=== PATIENT | male | born 1965 | race Caucasian/White ===

== ENCOUNTER 2022-09-11 10:51 | Inpatient (IN) | payer MEDICARE ==
[2022-09-11 11:18] LABS: #Eosinphils 0.3 thou/uL (0.0-0.7); #Lymphocytes 1.4 thou/uL (1.20-3.40); #Monocytes 0.5 thou/uL (0.11-0.59); #Neutrophils 3.5 thou/uL (1.40-6.50); %Basophils 0.6 % (0.0-1.0); %Eosinophils 5.3 % (0.0-10.0); %Lymphocytes 24.4 % (21.0-51.0); %Monocytes 9.3 % (0.0-10.0); %Neutrophils 60.3 % (42.0-75.0); Mean Corpuscular Hemoglobin 32.4 pg (27.0-31.0); Mean Corpuscular Volume 95.2 fl (78.0-98.0); Mean Platelet Volume 7.4 fL (7.4-10.4); Platelet Count 198 10x3/uL (130-400); RBC Distribution Width 12.2 % (11.5-14.5); Red Blood Cell (RBC) Count 4.93 mill/uL (4.70-6.10); White Blood Cell (WBC) Count 5.7 10x3/uL (4.8-10.8)
[2022-09-11] MEDS ORDERED: Iopamidol-370 76% 500 ML 1 ML ONE (11:35)
[2022-09-11 11:40] LABS: ALT (SGPT) 17 U/L (8-55); AST (SGOT) 24 U/L (5-34); Albumin 4.5 g/dL (3.5-5.0); Alkaline Phosphatase 57 U/L (40-110); Anion Gap 15 mmol/L (10-20); BUN (Urea Nitrogen) 14 mg/dL (8.4-25.7); Bilirubin, Total 0.6 mg/dL (0.2-1.2); Calc. Creatinine Clearance 0 mL/min (70-130); Calcium 9.7 mg/dL (7.8-10.44); Carbon Dioxide 25 mmol/L (22-29); Chloride 103 mmol/L (98-107); Estimated GFR 64; Globulin 3.3 g/dL (2.4-3.5); Glucose 63 mg/dL (70-105); Lipase 44 U/L (8-78); Potassium 4.3 mmol/L (3.5-5.1); Protein, Total 7.8 g/dL (6.0-8.3); Sodium 139 mmol/L (136-145)
[2022-09-11] MEDS ORDERED: Aspirin Chewable 81 MG TAB ONE (12:00)
[2022-09-11] MEDS ORDERED: Nitroglycerin 0.4 MG TAB 1 EACH ONE (12:00)
[2022-09-11] MEDS ORDERED: Morphine 4 MG/ML VIAL ONE (12:18)
[2022-09-11] MEDS ORDERED: Polyethylene Glycol 3350 17 GM Packet PO PRN (13:19)
[2022-09-11 14:38] VITALS: BMI 31.8
[2022-09-11 14:48] LABS: Actual Bicarbonate (HCO3a) 28.8 mEq/L (22-28); Calcium, Ionized (arterial) 1.11 mmol/L (1.12-1.30); Carboxyhemoglobin (COHb) 2.3 gm% (0.0-3.0); Hemoglobin (Hb) 14.9 g/dL (14.0-18.0); O2 Tension (PaO2), arterial 82.2 mmHg (80.0-100.0); Potassium - ABG Lab 4.03 mmol/L (3.70-5.30); Puncture Site LBA; pH, Arterial 7.43 (7.35-7.45)
[2022-09-11] MEDS: Acetaminophen 500 MG TAB PO SCH ×2 (15:01→21:37)
[2022-09-11 15:30] LABS: Lactic Acid 1.6 mmol/L (0.5-2.2)
[2022-09-11 15:44] LABS: Troponin I Less than 0.010 ng/mL (< 0.028)
[2022-09-11] MEDS: Morphine 4 MG/ML VIAL SLOW IVP PRN ×2 (16:49→21:18)
[2022-09-11] MEDS: Carvedilol 6.25 MG TAB PO SCH (16:49)
[2022-09-11] MEDS ORDERED: Nicotine 21 MG PATCH TD PRN (20:29)
[2022-09-11] MEDS ORDERED: Rosuvastatin 20 MG TAB PO SCH (21:00)
[2022-09-11] MEDS ORDERED: Amitriptyline HCl 100 MG TAB PO SCH (21:00)
[2022-09-11] MEDS: Tamsulosin HCl 0.4 MG CAP PO SCH (21:39)
[2022-09-11] MEDS: Losartan 25 MG TAB PO SCH ×2 (21:41→21:44)
[2022-09-12] MEDS: Morphine 4 MG/ML VIAL SLOW IVP PRN ×2 (02:04→18:02)
[2022-09-12] MEDS ORDERED: Senokot S 8.6-50 MG TAB PO PRN (03:47)
[2022-09-12 05:41] LABS: #Eosinphils 0.3 thou/uL (0.0-0.7); #Lymphocytes 2.1 thou/uL (1.20-3.40); #Monocytes 0.7 thou/uL (0.11-0.59); #Neutrophils 1.9 thou/uL (1.40-6.50); %Basophils 0.9 % (0.0-1.0); %Eosinophils 5.3 % (0.0-10.0); %Lymphocytes 42.3 % (21.0-51.0); %Monocytes 12.9 % (0.0-10.0); %Neutrophils 38.6 % (42.0-75.0); Hemoglobin 12.8 g/dL (14.0-18.0); Mean Corpuscular HGB CONC 32.2 g/dL (32.0-36.0); Mean Corpuscular Hemoglobin 31.4 pg (27.0-31.0); Mean Corpuscular Volume 97.6 fl (78.0-98.0); Mean Platelet Volume 7.7 fL (7.4-10.4); Platelet Count 155 10x3/uL (130-400); RBC Distribution Width 12.3 % (11.5-14.5); Red Blood Cell (RBC) Count 4.07 mill/uL (4.70-6.10)
[2022-09-12 05:51] LABS: Lactic Acid 0.8 mmol/L (0.5-2.2)
[2022-09-12 05:55] LABS: ALT (SGPT) 14 U/L (8-55); AST (SGOT) 18 U/L (5-34); Albumin 3.7 g/dL (3.5-5.0); Alkaline Phosphatase 49 U/L (40-110); Anion Gap 11 mmol/L (10-20); BUN (Urea Nitrogen) 19 mg/dL (8.4-25.7); Bilirubin, Direct 0.2 mg/dL (0.1-0.3); Bilirubin, Total 0.4 mg/dL (0.2-1.2); Calc. Creatinine Clearance 95 mL/min (70-130); Calcium 8.6 mg/dL (7.8-10.44); Carbon Dioxide 29 mmol/L (22-29); Chloride 100 mmol/L (98-107); Estimated GFR 64; Glucose 75 mg/dL (70-105); Potassium 3.5 mmol/L (3.5-5.1); Protein, Total 6.3 g/dL (6.0-8.3); Sodium 136 mmol/L (136-145)
[2022-09-12] MEDS: oxyCODONE 5 MG TAB PO PRN ×2 (05:56→10:20)
[2022-09-12] MEDS ORDERED: Spironolactone 25 MG TAB PO SCH (08:00)
[2022-09-12] MEDS: Polyethylene Glycol 3350 17 GM Packet PO SCH (08:59)
[2022-09-12] MEDS: Aspirin Chewable 81 MG TAB PO SCH (08:59)
[2022-09-12] MEDS: Acetaminophen 500 MG TAB PO SCH ×2 (09:00→14:48)
[2022-09-12] MEDS ORDERED: Aspirin 81 mg Enteric Coated Tablet PO SCH (09:00)
[2022-09-12] MEDS: Enoxaparin Sodium 30 MG/0.3 ML SYRINGE SC SCH (09:03)
[2022-09-12] MEDS: Carvedilol 6.25 MG TAB PO SCH ×2 (09:03→17:59)
[2022-09-12] MEDS: Losartan 25 MG TAB PO SCH ×2 (09:03→21:46)
[2022-09-12] MEDS ORDERED: Acetaminophen 500 MG TAB PO PRN (14:53)
[2022-09-12] MEDS ORDERED: Morphine 2 MG/ML VIAL SLOW IVP PRN (16:51)
[2022-09-12] MEDS: Rosuvastatin 20 MG TAB PO SCH (21:46)
[2022-09-12] MEDS: Tamsulosin HCl 0.4 MG CAP PO SCH (21:46)
[2022-09-12] MEDS: Amitriptyline HCl 100 MG TAB PO SCH (21:46)
[2022-09-13] MEDS: Morphine 4 MG/ML VIAL SLOW IVP PRN ×4 (00:21→22:43)
[2022-09-13 05:57] LABS: Hemoglobin 12.9 g/dL (14.0-18.0); Mean Corpuscular HGB CONC 33.6 g/dL (32.0-36.0); Mean Corpuscular Hemoglobin 32.8 pg (27.0-31.0); Mean Corpuscular Volume 97.6 fl (78.0-98.0); Mean Platelet Volume 7.7 fL (7.4-10.4); Platelet Count 146 10x3/uL (130-400); Red Blood Cell (RBC) Count 3.92 mill/uL (4.70-6.10); White Blood Cell (WBC) Count 5.4 10x3/uL (4.8-10.8)
[2022-09-13 06:24] LABS: Anion Gap 12 mmol/L (10-20); BUN (Urea Nitrogen) 21 mg/dL (8.4-25.7); Calc. Creatinine Clearance 114 mL/min (70-130); Calcium 8.7 mg/dL (7.8-10.44); Carbon Dioxide 27 mmol/L (22-29); Chloride 103 mmol/L (98-107); Estimated GFR 80; Glucose 84 mg/dL (70-105); Potassium 4.2 mmol/L (3.5-5.1); Sodium 138 mmol/L (136-145)
[2022-09-13] MEDS: Aspirin Chewable 81 MG TAB PO SCH (08:28)
[2022-09-13] MEDS: Docusate 100 MG CAP PO SCH (08:28)
[2022-09-13] MEDS: Carvedilol 6.25 MG TAB PO SCH ×2 (08:29→16:36)
[2022-09-13] MEDS ORDERED: Polyethylene Glycol 3350 17 GM Packet PO SCH (09:00)
[2022-09-13] MEDS ORDERED: Docusate 100 MG CAP PO SCH (09:00)
[2022-09-13] MEDS: Losartan 25 MG TAB PO SCH ×2 (10:20→20:03)
[2022-09-13] MEDS ORDERED: Lactated Ringer's 1,000 ML IV SCH (11:15)
[2022-09-13] MEDS ORDERED: Lactated Ringer's 500 ML IV SCH (11:15)
[2022-09-13] MEDS: Polyethylene Glycol 3350 17 GM Packet PO SCH (11:36)
[2022-09-13] MEDS: Enoxaparin Sodium 30 MG/0.3 ML SYRINGE SC SCH (11:36)
[2022-09-13] MEDS: Rosuvastatin 20 MG TAB PO SCH (20:03)
[2022-09-13] MEDS: Tamsulosin HCl 0.4 MG CAP PO SCH (20:03)
[2022-09-13] MEDS: Amitriptyline HCl 100 MG TAB PO SCH (20:03)
[2022-09-14] MEDS: Morphine 4 MG/ML VIAL SLOW IVP PRN ×3 (06:02→18:20)
[2022-09-14] MEDS ORDERED: Regadenoson 0.4 MG/5 ML SYRINGE ONE (08:31)
[2022-09-14] MEDS: Carvedilol 6.25 MG TAB PO SCH ×2 (12:13→17:04)
[2022-09-14] MEDS: Aspirin Chewable 81 MG TAB PO SCH (12:13)
[2022-09-14] MEDS: Docusate 100 MG CAP PO SCH (12:13)
[2022-09-14] MEDS: Enoxaparin Sodium 30 MG/0.3 ML SYRINGE SC SCH (12:14)
[2022-09-14] MEDS: Losartan 25 MG TAB PO SCH ×2 (12:14→21:34)
[2022-09-14] MEDS: Polyethylene Glycol 3350 17 GM Packet PO SCH (12:17)
[2022-09-14] MEDS: Amitriptyline HCl 100 MG TAB PO SCH (21:33)
[2022-09-14] MEDS: Rosuvastatin 20 MG TAB PO SCH (21:34)
[2022-09-14] MEDS: Tamsulosin HCl 0.4 MG CAP PO SCH (21:34)
[2022-09-14] MEDS ORDERED: Ketorolac Tromethamine 30 MG/ML VIAL IVP SCH (22:00)
[2022-09-15] MEDS: Morphine 4 MG/ML VIAL SLOW IVP PRN ×3 (03:16→21:21)
[2022-09-15] MEDS: Aspirin Chewable 81 MG TAB PO SCH (07:39)
[2022-09-15] MEDS: Carvedilol 6.25 MG TAB PO SCH ×2 (07:40→17:26)
[2022-09-15] MEDS: Losartan 25 MG TAB PO SCH ×2 (07:41→21:21)
[2022-09-15] MEDS: Polyethylene Glycol 3350 17 GM Packet PO SCH (07:42)
[2022-09-15] MEDS: Docusate 100 MG CAP PO SCH (07:42)
[2022-09-15] MEDS: Enoxaparin Sodium 30 MG/0.3 ML SYRINGE SC SCH (07:43)
[2022-09-15] MEDS ORDERED: Iopamidol 30 ML ONE (11:35)
[2022-09-15] MEDS ORDERED: fentaNYL PF 100 MCG/2 ML SYRINGE ONE (15:00)
[2022-09-15] MEDS ORDERED: ePHEDrine 50 MG/ML VIAL ONE (15:09)
[2022-09-15] MEDS ORDERED: Phenylephrine 10 MG/ML VIAL ONE (15:09)
[2022-09-15] MEDS ORDERED: PROPOFOL 200 MG/20 ML VIAL ONE (15:09)
[2022-09-15] MEDS ORDERED: Glycopyrrolate 0.2 MG/ML 5 ML SYRINGE ONE (15:09)
[2022-09-15] MEDS ORDERED: FENTANYL 50 MCG/ML 1 ML VIAL ONE ×2 (16:40→16:58)
[2022-09-15] MEDS ORDERED: Ondansetron HCl/PF 4 MG/2 ML Vial IVP PRN (16:41)
[2022-09-15] MEDS ORDERED: Promethazine HCl 25 MG/ML VIAL IM PRN (16:41)
[2022-09-15] MEDS ORDERED: Promethazine HCl 25 MG/ML VIAL IVPB PRN (16:41)
[2022-09-15] MEDS: Rosuvastatin 20 MG TAB PO SCH (21:21)
[2022-09-15] MEDS: Amitriptyline HCl 100 MG TAB PO SCH (21:21)
[2022-09-15] MEDS: Tamsulosin HCl 0.4 MG CAP PO SCH (21:21)
[2022-09-16] MEDS: Morphine 4 MG/ML VIAL SLOW IVP PRN ×2 (03:27→09:40)
[2022-09-16] MEDS: Carvedilol 6.25 MG TAB PO SCH (08:52)
[2022-09-16] MEDS: Polyethylene Glycol 3350 17 GM Packet PO SCH (08:52)
[2022-09-16] MEDS: Aspirin Chewable 81 MG TAB PO SCH (08:52)
[2022-09-16] MEDS: Docusate 100 MG CAP PO SCH (08:52)
[2022-09-16] MEDS: Enoxaparin Sodium 30 MG/0.3 ML SYRINGE SC SCH (08:52)
[2022-09-16] MEDS: Losartan 25 MG TAB PO SCH (08:52)
[2022-09-16 11:31] VITALS: BP 127/66; TEMP 98.3
== END 2022-09-16 11:37 | disposition home or self-care (01) | DRG 660 ==
LOC: ERS 10:51 → 2SW 14:16 → OBSVTOIN 09-12 15:53
PROVIDERS: ADMIT Hospitalist; ATTEND Hospitalist
PROC: 0T778DZ Dilation of Left Ureter with Intraluminal Device, Via Natural or Artificial Opening Endoscopic (ICD-10-PCS; principal; 2022-09-15)
PROC: 0TC78ZZ Extirpation of Matter from Left Ureter, Via Natural or Artificial Opening Endoscopic (ICD-10-PCS; 2022-09-15)
PROC: BT1F1ZZ Fluoroscopy of Left Kidney, Ureter and Bladder using Low Osmolar Contrast (ICD-10-PCS; 2022-09-15)
DX: N13.2 Hydronephrosis with renal and ureteral calculous obstruction (principal); I50.42 Chronic combined systolic (congestive) and diastolic (congestive) heart failure; Q43.3 Congenital malformations of intestinal fixation; N13.39 Other hydronephrosis; Z20.822 Contact with and (suspected) exposure to COVID-19; F17.210 Nicotine dependence, cigarettes, uncomplicated; J44.9 Chronic obstructive pulmonary disease, unspecified; R07.89 Other chest pain; K59.00 Constipation, unspecified; I95.1 Orthostatic hypotension; Z87.11 Personal history of peptic ulcer disease; Z79.899 Other long term (current) drug therapy
CPT/HCPCS: 36415; 36600; 71045; 71275; 74018; 74177; 74420; 78452; 80048; 80053; 80076; 82805; 83605; 83690; 83880; 84484; 85025; 85027; 93005; 93017; 93306; 96372; 96374; 96376; A9500; C1713; C2617; G0378; J1650; J1885; J2270; J2370; J2704; J2785; J3010; J3490; J7120; Q9967; U0003; U0005